=== PATIENT | male | born 1945 | race Hispanic/Latino ===

== ENCOUNTER 2024-09-01 09:12 | Emergency (ER) | payer BC, MEDICARE ==
[2024-09-01] MEDS ORDERED: Rabies Vaccine Human 2.5 UNITS VIAL ONE (09:59)
[2024-09-01] MEDS ORDERED: Rabies Immune Globulin/PF 300 UNITS/ML VIAL ONE ×3 (10:00→10:21)
[2024-09-01] MEDS ORDERED: Rabies Immune Globulin/PF 300 UNITS/ML VIAL IM SCH (10:15)
== END 2024-09-01 10:38 | disposition home or self-care (01) ==
LOC: ERS 09:12
DX: S61.451A Open bite of right hand, initial encounter (principal); S61.431A Puncture wound without foreign body of right hand, initial encounter; I10 Essential (primary) hypertension; W55.81XA Bitten by other mammals, initial encounter; Z23 Encounter for immunization
CPT/HCPCS: 90375; 90471; 90675; 96372

== ENCOUNTER → 2024-09-15 | Day surgery (SDC) | payer MEDICARE ==
[~2024-09-15] MED LIST: Rabies Vaccine Human 2.5 UNITS VIAL ONE
== END ==
LOC: NM 08:32
PROVIDERS: ATTEND Radiology Vascular & Interventional Radiology
DX: Z29.14 Encounter for prophylactic rabies immune globulin (principal)
CPT/HCPCS: 90675